=== PATIENT | female | born 1980 | race Caucasian/White ===

== ENCOUNTER → 2020-10-26 | Outpatient (CLI) | payer BC ==
[~2020-10-26] MED LIST: ATENOLOL25 MG PO; CLARITIN10 MG PO; MOTRIN600 MG PO; PRENATAL 1 PLUS1 TA3 PO; TYLENOL325 M1 PO
== END | disposition home or self-care (01) ==
LOC: COVID19 13:52
PROVIDERS: ATTEND Family Medicine
DX: Z20.822 Contact with and (suspected) exposure to COVID-19 (principal)

== ENCOUNTER 2020-11-17 22:35 | Inpatient (IN) | payer BC ==
[~2020-11-17] VITALS: Ht 157.5 cm; Wt 60.8 kg
[2020-11-17 23:02] VITALS: BP 109/66
[2020-11-18] VITALS (12 sets, daily range): BP systolic 97–125; BP diastolic 44–76
[2020-11-18 00:13] LABS: BILIRUBIN Negative (Negative); BLOOD Negative (Negative); CLARITY Clear (Clear); COLOR Yellow (Yellow); GLUCOSE Negative (Negative); KETONE 2+ (Negative); LEUKO ESTERASE Negative (Negative); NITRITE Negative (Negative); PH 5.5 (4.5-8.0); UROBILINOGEN 0.2 E.U./dl (0.0-1.0)
[2020-11-18 00:47] LABS: BACTERIA 1+
[2020-11-18 00:54] LABS: BASO % 0.3 % (0.0-1.0); EOS % 0.3 % (1.0-4.0); HEMATOCRIT 40.6 % (37.0-47.0); LYMPH # 1.2 10*3/uL (1.3-4.4); LYMPH % 8.1 % (27.0-41.0); MEAN CELL VOLUME 87.7 fl (81.0-99.0); MEAN CORPUSCULAR HGB 28.3 pg (27.0-31.0); MEAN CORPUSCULAR HGB CONC 32.3 g/dl (33.0-37.0); MEAN PLATELET VOLUME 9.1 fl (9.6-12.3); NEUT # 12.2 10*3/uL (2.3-7.9); PLATELET COUNT AUTOMATED 297 10*3/uL (130-400); RED BLOOD COUNT 4.63 10*6/uL (4.10-5.10); RED CELL DISTRI WIDTH 12.9 % (0-14.5); WHITE BLOOD COUNT 14.5 10*3/uL (4.8-10.8)
[2020-11-18 01:08] LABS: ALBUMIN 4.2 gm/dl (3.1-4.5); ALKALINE PHOSPHATASE 64 U/L (45-117); BUN 5 mg/dl (7-24); CHLORIDE 103 mmol/L (98-107); LIPASE 93 U/L (73-393); POTASSIUM 3.6 mmol/L (3.5-5.1); SGOT/AST 7 IU/L (3-35); SGPT/ALT 13 U/L (12-78); SODIUM 137 mmol/L (136-145)
[2020-11-18 05:35] LABS: ALBUMIN 3.6 gm/dl (3.1-4.5); ALKALINE PHOSPHATASE 57 U/L (45-117); BUN 5 mg/dl (7-24); CHLORIDE 110 mmol/L (98-107); CHOLESTEROL 137 mg/dL (<200); CREATININE 0.74 mg/dL (0.55-1.02); FREE T4 1.35 ng/dl (0.76-1.46); HDL CHOLESTEROL 67 mg/dl (40-60); LDL CHOLESTEROL 63 mg/dL (9-159); POTASSIUM 3.6 mmol/L (3.5-5.1); SGOT/AST 11 IU/L (3-35); SGPT/ALT 12 U/L (12-78); SODIUM 141 mmol/L (136-145); TOTAL PROTEIN 7.4 gm/dL (6.4-8.2); TRIGLYCERIDES 34 mg/dl (<150); VLDL CHOLESTEROL 7 mg/dL (6-40)
[2020-11-18 05:39] LABS: THYROID STIM HORMONE (HS) 0.823 uIU/ml (0.358-4.75)
[2020-11-18 05:56] LABS: BASO % 0.2 % (0.0-1.0); EOS % 0.2 % (1.0-4.0); HEMATOCRIT 36.9 % (37.0-47.0); LYMPH # 0.6 10*3/uL (1.3-4.4); LYMPH % 4.6 % (27.0-41.0); MEAN CELL VOLUME 88.7 fl (81.0-99.0); MEAN CORPUSCULAR HGB 28.8 pg (27.0-31.0); MEAN CORPUSCULAR HGB CONC 32.5 g/dl (33.0-37.0); MEAN PLATELET VOLUME 9.8 fl (9.6-12.3); MONO # 0.9 10*3/uL (0.1-1.0); MONO % 6.7 % (3.0-9.0); NEUT # 11.6 10*3/uL (2.3-7.9); NEUT % 87.9 % (47.0-73.0); PLATELET COUNT AUTOMATED 266 10*3/uL (130-400); RED BLOOD COUNT 4.16 10*6/uL (4.10-5.10); RED CELL DISTRI WIDTH 13.1 % (0-14.5); WHITE BLOOD COUNT 13.2 10*3/uL (4.8-10.8)
[2020-11-18 06:40] LABS: ACT PARTIAL THROMBO TIME 26.5 SECONDS (20.0-32.1); INTERNATIONAL NORM RATIO 1.1 (2.0-3.5)
[2020-11-18 07:54] LABS: VITAMIN D, 25-HYDROXY 46.9 ng/mL (30-100)
[2020-11-18] MEDS ORDERED: ONE DAILY WOME1 EACH PO (08:20)
[2020-11-18] MEDS ORDERED: CALTRATE 600 +1 EACH PO (08:21)
[2020-11-18] MEDS ORDERED: ZINC50 M3 PO (08:21)
[2020-11-18] MEDS ORDERED: VITAMIN C500 M4 PO (08:26)
[2020-11-19] VITALS: BP 91/51
[2020-11-19 06:43] LABS: HEMATOCRIT 32.2 % (37.0-47.0); MEAN CELL VOLUME 90.2 fl (81.0-99.0); MEAN CORPUSCULAR HGB 28.3 pg (27.0-31.0); MEAN CORPUSCULAR HGB CONC 31.4 g/dl (33.0-37.0); MEAN PLATELET VOLUME 10.1 fl (9.6-12.3); PLATELET COUNT AUTOMATED 186 10*3/uL (130-400); RED BLOOD COUNT 3.57 10*6/uL (4.10-5.10); RED CELL DISTRI WIDTH 13.2 % (0-14.5); WHITE BLOOD COUNT 14.6 10*3/uL (4.8-10.8)
[2020-11-19 06:45] LABS: BUN 4 mg/dl (7-24); CHLORIDE 112 mmol/L (98-107); CREATININE 0.65 mg/dL (0.55-1.02); POTASSIUM 3.4 mmol/L (3.5-5.1); SODIUM 140 mmol/L (136-145)
[2020-11-19 07:28] LABS: PLATELET SUFFICIENCY NORMAL (NORMAL); TOTAL CELLS COUNTED 100 #CELLS
[2020-11-19 08:00] VITALS: BP 94/53
[2020-11-19] MEDS ORDERED: ZOFRAN4 MG PO (09:43)
[2020-11-19] MEDS ORDERED: COLACE100 MG PO (09:43)
[2020-11-19] MEDS ORDERED: AUGMENTIN 875875 MG PO (09:43)
[2020-11-19] MEDS ORDERED: HYDROCODONE-AC1 EAC1 PO (09:50)
== END 2020-11-19 11:23 | disposition home or self-care (01) | DRG 854 ==
LOC: ED 22:35 → EDHOLD 11-18 03:15 → 5E 11-18 03:15
PROVIDERS: Emergency Medicine; Hospitalist; Surgery; ADMIT Internal Medicine; ATTEND Internal Medicine
PROC: 0DTJ4ZZ Resection of Appendix, Percutaneous Endoscopic Approach (ICD-10-PCS; principal; 2020-11-18)
DX: A41.9 Sepsis, unspecified organism (principal); K35.890 Other acute appendicitis without perforation or gangrene; R82.4 Acetonuria; R73.9 Hyperglycemia, unspecified; E83.41 Hypermagnesemia; E80.6 Other disorders of bilirubin metabolism; Z90.49 Acquired absence of other specified parts of digestive tract; Z87.442 Personal history of urinary calculi; Z79.899 Other long term (current) drug therapy